=== PATIENT | male | born 1965 | race Caucasian/White ===

== ENCOUNTER 2017-01-16 16:05 | Inpatient (IN) | payer OTHER ==
[~2017-01-16] VITALS: Ht 188 cm; Wt 103.0 kg
[2017-01-16 16:15] VITALS: BP 122/90
[2017-01-16] MEDS ORDERED: MORPHINE SULFATE 2 MG/ML DISP.SYRIN. IV PRN (16:45)
[2017-01-16] MEDS ORDERED: ONDANSETRON PF 4 MG/2 ML VIAL. IV PRN (16:45)
[2017-01-16] MEDS ORDERED: ACETAMINOPHEN 325 MG TABLET. PO PRN (16:45)
[2017-01-16] MEDS ORDERED: AMLO10TA2 PO (17:38)
[2017-01-16] MEDS ORDERED: HYDR12.58 PO (17:38)
[2017-01-16] MEDS ORDERED: ASPI-482 PO (17:39)
[2017-01-16] MEDS ORDERED: ATOR20TA58 PO (17:39)
--- NOTE | 2017-01-16 17:59 | PDOC1 ---
History and Physical Date of Admission Date of Admission 01/16/17 Identification/Chief Complaint Chief Complaint fever Problems: Source Source: Chart review, Patient History of Present Illness History of Present Illness 51yo M, with HTN, hld was transfered from [facility] for fever. Pt serves in the , found a tick on him 1 week ago from [place], 2ds later, having fever daily, 99 to 101. His PCP check [place] dz and flu , were neg as per pt, [facility] fever test pending. Pt also has cough, with yellow sputum for 1 week. + chills, joint pain, no chest pain, N/V, diarrhea or skin rash. on doxy for 5days, still fever, today 101. now he feels bl eye pain when moving eyes, no vision problem. Past Medical History Past Medical History HTN HLD Past Surgical History Past Surgical History: No pertinent history Family History Family History: No Significant Social History Smoke: No ALCOHOL: occassional Drugs: None Current Problem List Problem List Problems Medical Problems: (1) Fever Status: Acute Current Medications Current Medications Current Medications Medications (Trade) Dose Ordered Sig/Anjana Start Time Stop Time Status Last Admin Dose Admin Acetaminophen (Tylenol) 650 mg PRN Q6HRS PRN 01/16/17 16:45 UNV Acetaminophen/ Hydrocodone Bitart (Lortab 5/325) 1 tab PRN Q4HRS PRN 01/16/17 16:45 UNV Doxycycline Hyclate (Vibra-Tab) 100 mg BID 01/16/17 21:00 UNV Enoxaparin Sodium (Lovenox 40mg Syringe) 40 mg Q24H 01/16/17 16:45 UNV Morphine Sulfate 1 mg PRN Q1HR PRN 01/16/17 16:45 UNV Ondansetron HCl (Zofran) 4 mg PRN Q6HRS PRN 01/16/17 16:45 UNV Allergies Allergies Allergies Coded Allergies Type Severity Reaction Last Updated Verified No Known Allergies Allergy Unknown 01/16/17 Yes ROS Review of System CONSTITUTIONAL: No fever or chills EYES: No recent changes SKIN: No rash or itching CARDIOVASCULAR: No chest pain, syncope, palpitations, or edema RESPIRATORY: No SOB or cough GASTROINTESTINAL: No nausea, vomiting or abdominal pain NEUROLOGICAL: No headaches or weakness ENDOCRINE: No cold or heat intolerance GENITOURINARY: No urgency or frequency of urination MUSCULOSKELETAL: No back pain or joint pain LYMPHATICS: No enlarged lymph nodes PSYCHIATRIC: No anxiety or depression Physical Exam Physical Exam GEN.: No apparent distress. Alert and oriented. HEENT: Head is normocephalic, atraumatic NECK: Supple. LUNGS: Clear to auscultation. HEART: RRR, S1, S2 present. Peripheral pulses intact ABDOMEN: Soft, nontender. Positive bowel sounds. EXTREMITIES: Without any cyanosis. NEUROLOGIC: Normal speech, normal tone PSYCHIATRIC: Normal affect, normal mood. SKIN: No ulcerations Vitals Vitals Vital Signs Date Time Temp Pulse Resp B/P Pulse Ox O2 Delivery O2 Flow Rate FiO2 01/16/17 16:15 99.6 68 18 122/90 94 Room Air 99.6 VTE Prophylaxis Ordered VTE Prophylaxis Devices: Yes VTE Pharmacological Prophylaxi: Yes Assessment/Plan Assessment/Plan 1. fever, need to rule out tick transmitted dz 2. HTN 3. hld PLAN: 1. id CONSUlt 2. ucx, bcx 3. cxr 4. MRI brain doxy for now ivf dvt ppx cont home meds, hold hctz check blood smear UYEN GUERRA MD Jan 16, 2017 17:59
[2017-01-16] MEDS ORDERED: GUAIFENESIN/CODEINE 100mg/10mg 5 ML LIQUID. PO PRN (18:00)
[2017-01-16] MEDS: IV NORMAL SALINE 1000ML BAG 1,000 ML IV SCH (18:36)
[2017-01-16 19:08] LABS: BACTERIA,URINE 0 /HPF (0-FEW); BILIRUBIN,URINE NEGATIVE (NEG); GLUCOSE,URINE NEGATIVE (NEG); NITRITE,URINE NEGATIVE (NEG); PH,URINE 6.5; PROTEIN,URINE NEGATIVE (NEG-TRACE); RBC,URINE 0 /HPF (0-2); UROBILINOGEN,URINE 0.2 mg/dL (0.2 mg/dL); WBC,URINE 0 /HPF (0-4)
[2017-01-16 19:18] LABS: BASO % 1 % (0-3); EOS % 0 % (0-3); HEMATOCRIT 40.5 % (39.0-53.0); LYMPH # 0.8 x10^3/uL (1.0-4.8); LYMPH % 38 % (24-48); MEAN CORPUSCULAR HEMOGLOBIN 30 pg (25-35); MEAN CORPUSCULAR HGB CONC 35 g/dL (31-37); MEAN CORPUSCULAR VOLUME 85 fL (79-100); MONO % 9 % (0-9); NEUT % 52 % (31-73); PLATELET COUNT 155 x10^3/uL (140-400); RED BLOOD COUNT 4.74 x10^6/uL (4.30-5.70); RED CELL DISTRIBUTION WIDTH 12.8 % (11.5-14.5)
[2017-01-16 19:24] LABS: PROTHROMBIN TIME PATIENT 12.8 SEC (11.7-14.0)
[2017-01-16 19:38] LABS: CALCIUM 8.6 mg/dL (8.5-10.1); CREATININE 1.3 mg/dL (0.7-1.3); GFR 57.7; POTASSIUM 3.2 mmol/L (3.5-5.1)
[2017-01-16 19:53] VITALS: BP 114/74
[2017-01-16] MEDS: DOXYCYCLINE HYCLATE 100 MG TABLET PO SCH (21:11)
[2017-01-16] MEDS: ENOXAPARIN 40 MG/0.4 ML SYRINGE. SQ SCH (21:12)
[2017-01-16 23:52] VITALS: BP 111/69
[2017-01-17 03:59] VITALS: BP 126/83
[2017-01-17] MEDS: HYDROCODONE/APAP 5/325MG TABLET. PO PRN ×3 (04:14→16:18)
[2017-01-17] MEDS: IV NORMAL SALINE 1000ML BAG 1,000 ML IV SCH (05:19)
[2017-01-17 07:00] VITALS: BP 121/81
[2017-01-17] MEDS: DOXYCYCLINE HYCLATE 100 MG TABLET PO SCH ×2 (08:32→20:42)
[2017-01-17] MEDS: ASPIRIN ENTERIC COATED 81 MG TABLET.DR. PO SCH (08:32)
[2017-01-17] MEDS: ATORVASTATIN CALCIUM 20 MG TABLET PO SCH (08:33)
[2017-01-17] MEDS: AMLODIPINE BESYLATE 10 MG TABLET. PO SCH (08:33)
[2017-01-17] MEDS ORDERED: GADOBUTROL 10 MMOL/10 ML VIAL IV ONE (09:45)
[2017-01-17] MEDS ORDERED: POTASSIUM CHLORIDE 20 MEQ TABLET.ER. PO ONE (10:15)
--- NOTE | 2017-01-17 10:41 | RAD ---
Portable AP upright view CXR: Clinical indications: Fever. Comparison: None available. Findings: No acute lung infiltrate or pleural effusion or pulmonary edema or lung mass or pneumothorax is seen. The heart size, pulmonary vasculature, mediastinum and both krzysztof are unremarkable. Impression: No acute radiographic abnormality is seen.
[2017-01-17 11:03] VITALS: BP 118/20
--- NOTE | 2017-01-17 12:13 | PDOC ---
PROGRESS NOTES Chief Complaint Chief Complaint 1. fever, need to rule out tick born dz 2. HTN 3. hld 4. hypokalemia PLAN: 1. id CONSUlt pending 2. ucx, bcx pending 3. cxr neg 4. MRI brain pending doxy for now dc ivf dvt ppx cont home meds, hold hctz check blood smear replete K History of Present Illness History of Present Illness afebrile still feels bl eyes pain when moving eyes Vitals Vitals Vital Signs Date Time Temp Pulse Resp B/P Pulse Ox O2 Delivery O2 Flow Rate FiO2 01/17/17 11:03 98.6 68 18 118/20 91 Room Air 98.6 Physical Exam General: Alert, Oriented X3, Cooperative Heart: Regular rate, Normal S1, Normal S2 Lungs: Clear Abdomen: Normal bowel sounds, Soft Extremities: No clubbing, No cyanosis Skin: No rashes Labs LABS Laboratory Tests Test 01/16/17 16:38 01/16/17 18:40 Urine Collection Type Unknown Urine Color Yellow Urine Clarity Clear Urine pH 6.5 Urine Specific [place] 1.015 Urine Protein Negativemg/dL (NEG-TRACE) Urine Glucose (UA) Negativemg/dL (NEG) Urine Ketones (Stick) Negativemg/dL (NEG) Urine Blood Negative (NEG) Urine Nitrite Negative (NEG) Urine Bilirubin Negative (NEG) Urine Urobilinogen Dipstick 0.2mg/dL (0.2 mg/dL) Urine Leukocyte Esterase Negative (NEG) Urine RBC 0/HPF (0-2) Urine WBC 0/HPF (0-4) Urine Bacteria 0/HPF (0-FEW) Urine Hyaline Casts Few/HPF Urine Mucus Slight/LPF White Blood Count 2.0x10^3/uL (4.0-11.0) Red Blood Count 4.74x10^6/uL (4.30-5.70) Hemoglobin 14.0g/dL (13.0-17.5) Hematocrit 40.5% (39.0-53.0) Mean Corpuscular Volume 85fL (79-100) Mean Corpuscular Hemoglobin 30pg (25-35) Mean Corpuscular Hemoglobin Concent 35g/dL (31-37) Red Cell Distribution Width 12.8% (11.5-14.5) Platelet Count 155x10^3/uL (140-400) Neutrophils (%) (Auto) 52% (31-73) Lymphocytes (%) (Auto) 38% (24-48) Monocytes (%) (Auto) 9% (0-9) Eosinophils (%) (Auto) 0% (0-3) Basophils (%) (Auto) 1% (0-3) Neutrophils # (Auto) 1.0x10^3uL (1.8-7.7) Lymphocytes # (Auto) 0.8x10^3/uL (1.0-4.8) Monocytes # (Auto) 0.2x10^3/uL (0.0-1.1) Eosinophils # (Auto) 0.0x10^3/uL (0.0-0.7) Basophils # (Auto) 0.0x10^3/uL (0.0-0.2) Prothrombin Time 12.8SEC (11.7-14.0) Prothromb Time International Ratio 1.0 (0.8-1.1) Sodium Level 138mmol/L (136-145) Potassium Level 3.2mmol/L (3.5-5.1) Chloride Level 97mmol/L (98-107) Carbon Dioxide Level 35mmol/L (21-32) Anion Gap 6 (6-14) Blood Urea Nitrogen 18mg/dL (8-26) Creatinine 1.3mg/dL (0.7-1.3) Estimated GFR (Cockcroft-Gault) 57.7 Glucose Level 121mg/dL (70-99) Calcium Level 8.6mg/dL (8.5-10.1) Review of Systems Review of Systems no fever, chills, sob or chest pain Assessment and Plan Assessmemt and Plan Problems Medical Problems: (1) Fever Status: Acute Problems: Comment Review of Relevant I have reviewed the following items frank (where applicable) has been applied. Labs Laboratory Tests Test 01/16/17 16:38 01/16/17 18:40 Urine Collection Type Unknown Urine Color Yellow Urine Clarity Clear Urine pH 6.5 Urine Specific [place] 1.015 Urine Protein Negativemg/dL (NEG-TRACE) Urine Glucose (UA) Negativemg/dL (NEG) Urine Ketones (Stick) Negativemg/dL (NEG) Urine Blood Negative (NEG) Urine Nitrite Negative (NEG) Urine Bilirubin Negative (NEG) Urine Urobilinogen Dipstick 0.2mg/dL (0.2 mg/dL) Urine Leukocyte Esterase Negative (NEG) Urine RBC 0/HPF (0-2) Urine WBC 0/HPF (0-4) Urine Bacteria 0/HPF (0-FEW) Urine Hyaline Casts Few/HPF Urine Mucus Slight/LPF White Blood Count 2.0x10^3/uL (4.0-11.0) Red Blood Count 4.74x10^6/uL (4.30-5.70) Hemoglobin 14.0g/dL (13.0-17.5) Hematocrit 40.5% (39.0-53.0) Mean Corpuscular Volume 85fL (79-100) Mean Corpuscular Hemoglobin 30pg (25-35) Mean Corpuscular Hemoglobin Concent 35g/dL (31-37) Red Cell Distribution Width 12.8% (11.5-14.5) Platelet Count 155x10^3/uL (140-400) Neutrophils (%) (Auto) 52% (31-73) Lymphocytes (%) (Auto) 38% (24-48) Monocytes (%) (Auto) 9% (0-9) Eosinophils (%) (Auto) 0% (0-3) Basophils (%) (Auto) 1% (0-3) Neutrophils # (Auto) 1.0x10^3uL (1.8-7.7) Lymphocytes # (Auto) 0.8x10^3/uL (1.0-4.8) Monocytes # (Auto) 0.2x10^3/uL (0.0-1.1) Eosinophils # (Auto) 0.0x10^3/uL (0.0-0.7) Basophils # (Auto) 0.0x10^3/uL (0.0-0.2) Prothrombin Time 12.8SEC (11.7-14.0) Prothromb Time International Ratio 1.0 (0.8-1.1) Sodium Level 138mmol/L (136-145) Potassium Level 3.2mmol/L (3.5-5.1) Chloride Level 97mmol/L (98-107) Carbon Dioxide Level 35mmol/L (21-32) Anion Gap 6 (6-14) Blood Urea Nitrogen 18mg/dL (8-26) Creatinine 1.3mg/dL (0.7-1.3) Estimated GFR (Cockcroft-Gault) 57.7 Glucose Level 121mg/dL (70-99) Calcium Level 8.6mg/dL (8.5-10.1) Laboratory Tests Test 01/16/17 16:38 01/16/17 18:40 Urine Collection Type Unknown Urine Color Yellow Urine Clarity Clear Urine pH 6.5 Urine Specific [place] 1.015 Urine Protein Negativemg/dL (NEG-TRACE) Urine Glucose (UA) Negativemg/dL (NEG) Urine Ketones (Stick) Negativemg/dL (NEG) Urine Blood Negative (NEG) Urine Nitrite Negative (NEG) Urine Bilirubin Negative (NEG) Urine Urobilinogen Dipstick 0.2mg/dL (0.2 mg/dL) Urine Leukocyte Esterase Negative (NEG) Urine RBC 0/HPF (0-2) Urine WBC 0/HPF (0-4) Urine Bacteria 0/HPF (0-FEW) Urine Hyaline Casts Few/HPF Urine Mucus Slight/LPF White Blood Count 2.0x10^3/uL (4.0-11.0) Red Blood Count 4.74x10^6/uL (4.30-5.70) Hemoglobin 14.0g/dL (13.0-17.5) Hematocrit 40.5% (39.0-53.0) Mean Corpuscular Volume 85fL (79-100) Mean Corpuscular Hemoglobin 30pg (25-35) Mean Corpuscular Hemoglobin Concent 35g/dL (31-37) Red Cell Distribution Width 12.8% (11.5-14.5) Platelet Count 155x10^3/uL (140-400) Neutrophils (%) (Auto) 52% (31-73) Lymphocytes (%) (Auto) 38% (24-48) Monocytes (%) (Auto) 9% (0-9) Eosinophils (%) (Auto) 0% (0-3) Basophils (%) (Auto) 1% (0-3) Neutrophils # (Auto) 1.0x10^3uL (1.8-7.7) Lymphocytes # (Auto) 0.8x10^3/uL (1.0-4.8) Monocytes # (Auto) 0.2x10^3/uL (0.0-1.1) Eosinophils # (Auto) 0.0x10^3/uL (0.0-0.7) Basophils # (Auto) 0.0x10^3/uL (0.0-0.2) Prothrombin Time 12.8SEC (11.7-14.0) Prothromb Time International Ratio 1.0 (0.8-1.1) Sodium Level 138mmol/L (136-145) Potassium Level 3.2mmol/L (3.5-5.1) Chloride Level 97mmol/L (98-107) Carbon Dioxide Level 35mmol/L (21-32) Anion Gap 6 (6-14) Blood Urea Nitrogen 18mg/dL (8-26) Creatinine 1.3mg/dL (0.7-1.3) Estimated GFR (Cockcroft-Gault) 57.7 Glucose Level 121mg/dL (70-99) Calcium Level 8.6mg/dL (8.5-10.1) Medications Current Medications Ondansetron HCl (Zofran) 4 mg PRN Q6HRS PRN IV NAUSEA/VOMITING Last administered on 01/17/17 11:37; Start 01/16/17 at 16:45 Morphine Sulfate 1 mg PRN Q1HR PRN IV PAIN; Start 01/16/17 at 16:45 Acetaminophen/ Hydrocodone Bitart (Lortab 5/325) 1 tab PRN Q4HRS PRN PO MILD PAIN Last administered on 01/17/17 08:32; Start 01/16/17 at 16:45 Acetaminophen (Tylenol) 650 mg PRN Q6HRS PRN PO Headaches, Temp > 101.5F Last administered on 01/16/17 18:37; Start 01/16/17 at 16:45 Enoxaparin Sodium (Lovenox 40mg Syringe) 40 mg Q24H SQ Last administered on 01/16 21:12; Start 01/16/17 at 21:00 Doxycycline Hyclate (Vibra-Tab) 100 mg BID PO Last administered on 01/17/17 08: 32; Start 01/16/17 at 21:00 Amlodipine Besylate (Norvasc) 10 mg DAILY PO Last administered on 01/17/17 08: 33; Start 01/17/17 at 09:00 Aspirin (Ecotrin) 81 mg DAILY PO Last administered on 01/17/17 08:32; Start 01/17/17 at 09:00 Atorvastatin Calcium 20 mg 20 mg DAILY PO Last administered on 01/17/17 08:33; Start 01/17/17 at 09:00 Sodium Chloride (Iv Sodium Chloride 0.9% 1000ml Bag) 1,000 ml @ 75 mls/hr [id number] IV Last administered on 01/17/17 05:19; Start 01/16/17 at 18:00 Guaifenesin/ Codeine Phosphate (Robitussin Ac) 5 ml PRN Q6HRS PRN PO COUGH; Start 01/16/17 at 18:00 Gadobutrol (Gadavist) 10 mmol 1X ONCE IV Last administered on 01/17/17 10:05; Start 01/17/17 at 09:45; Stop 01/17/17 at 09:46; Status DC Potassium Chloride (Klor-Con) 40 meq 1X ONCE PO Last administered on 01/17/17 12:03; Start 01/17/17 at 10:15; Stop 01/17/17 at 10:16; Status DC Active Scripts Active Reported Aspir 81 (Aspirin) 81 Mg Tablet.dr 1 Tab PO DAILY Atorvastatin Calcium 20 Mg Tablet 1 Tab PO DAILY Hydrochlorothiazide Tablet (Hydrochlorothiazide) 12.5 Mg Tablet 2 Tab PO DAILY Amlodipine Besylate 10 Mg Tablet 10 Mg PO DAILY Vitals/I & O Vital Sign - Last 24 Hours 01/16/17 01/16/17 01/16/17 01/16/17 16:15 19:53 20:00 23:52 Temp 99.6 98.9 99.0 99.6 98.9 99.0 Pulse 68 79 62 Resp 18 18 18 B/P 122/90 114/74 111/69 Pulse Ox 94 93 97 O2 Delivery Room Air Room Air Room Air Room Air 01/17/17 01/17/17 01/17/17 01/17/17 03:59 04:14 05:19 07:00 Temp 99.3 98.4 99.3 98.4 Pulse 69 60 Resp 18 20 18 18 B/P 126/83 121/81 Pulse Ox 93 93 O2 Delivery Room Air Room Air Room Air Room Air 01/17/17 01/17/17 08:33 11:03 Temp 98.6 98.6 Pulse 60 68 Resp 18 B/P 121/81 118/20 Pulse Ox 91 O2 Delivery Room Air Intake and Output 01/16/17 01/16/17 01/17/17 15:00 23:00 07:00 Intake Total 500 ml 1200 ml Output Total 300 ml Balance 500 ml 900 ml YUEN GUERRA MD Jan 17, 2017 12:13
--- NOTE | 2017-01-17 13:20 | RAD ---
MRI study of the brain with and without contrast Indications: Bilateral eye pain with movement side to side. Low-grade fever for one week. Patient got bit by a tick. Technique: Pre and postcontrast enhanced MRI sequences of the brain were performed. A total of 10 mL of Gadavist was given intravenously. Findings: No restricted diffusion is seen. No intracranial hemorrhage or mass effect or midline shift or hydrocephalus is seen. Mild bilateral periventricular white matter hyperintensities are seen consistent with chronic small vessel ischemic disease in this age group. No intracranial contrast enhancing lesion is seen. No leptomeningeal enhancement is seen. Normal vascular flow signal voids are seen. Internal auditory canals are symmetric without abnormal enhancement. There is mild mucosal thickening of the left maxillary sinus and both ethmoid sinuses and the left sphenoid sinus. No opacification of the paranasal sinuses is seen otherwise and no air-fluid levels are seen. No opacification of the mastoid sinuses is seen. The orbits are symmetric without abnormal enhancement. No cerebellar tonsillar ectopia or pituitary mass is seen. IMPRESSION: Mild chronic small vessel ischemic disease of the periventricular white matter. Otherwise no significant intracranial abnormality is evident. The orbits are symmetric.
--- NOTE | 2017-01-17 14:00 | PDOC ---
Infectious Disease Note Vital Sign Vital Signs Vital Signs Date Time Temp Pulse Resp B/P Pulse Ox O2 Delivery O2 Flow Rate FiO2 01/17/17 11:03 98.6 68 18 118/20 91 Room Air 98.6 Labs Lab Laboratory Tests Test 01/16/17 16:38 01/16/17 18:40 Urine Collection Type Unknown Urine Color Yellow Urine Clarity Clear Urine pH 6.5 Urine Specific [place] 1.015 Urine Protein Negativemg/dL (NEG-TRACE) Urine Glucose (UA) Negativemg/dL (NEG) Urine Ketones (Stick) Negativemg/dL (NEG) Urine Blood Negative (NEG) Urine Nitrite Negative (NEG) Urine Bilirubin Negative (NEG) Urine Urobilinogen Dipstick 0.2mg/dL (0.2 mg/dL) Urine Leukocyte Esterase Negative (NEG) Urine RBC 0/HPF (0-2) Urine WBC 0/HPF (0-4) Urine Bacteria 0/HPF (0-FEW) Urine Hyaline Casts Few/HPF Urine Mucus Slight/LPF White Blood Count 2.0x10^3/uL (4.0-11.0) Red Blood Count 4.74x10^6/uL (4.30-5.70) Hemoglobin 14.0g/dL (13.0-17.5) Hematocrit 40.5% (39.0-53.0) Mean Corpuscular Volume 85fL (79-100) Mean Corpuscular Hemoglobin 30pg (25-35) Mean Corpuscular Hemoglobin Concent 35g/dL (31-37) Red Cell Distribution Width 12.8% (11.5-14.5) Platelet Count 155x10^3/uL (140-400) Neutrophils (%) (Auto) 52% (31-73) Lymphocytes (%) (Auto) 38% (24-48) Monocytes (%) (Auto) 9% (0-9) Eosinophils (%) (Auto) 0% (0-3) Basophils (%) (Auto) 1% (0-3) Neutrophils # (Auto) 1.0x10^3uL (1.8-7.7) Lymphocytes # (Auto) 0.8x10^3/uL (1.0-4.8) Monocytes # (Auto) 0.2x10^3/uL (0.0-1.1) Eosinophils # (Auto) 0.0x10^3/uL (0.0-0.7) Basophils # (Auto) 0.0x10^3/uL (0.0-0.2) Prothrombin Time 12.8SEC (11.7-14.0) Prothromb Time International Ratio 1.0 (0.8-1.1) Sodium Level 138mmol/L (136-145) Potassium Level 3.2mmol/L (3.5-5.1) Chloride Level 97mmol/L (98-107) Carbon Dioxide Level 35mmol/L (21-32) Anion Gap 6 (6-14) Blood Urea Nitrogen 18mg/dL (8-26) Creatinine 1.3mg/dL (0.7-1.3) Estimated GFR (Cockcroft-Gault) 57.7 Glucose Level 121mg/dL (70-99) Calcium Level 8.6mg/dL (8.5-10.1) Objective Assessment Fever, better Leukopenia Headache./Eye pain -MRI, mild chronic small vessel ischemic disease -s/p LP: CSF WBC O, glu59, T pro 42.2. CT neg ([facility]) Tick bite HTN Plan Plan of Care Continue Doxy and add Unasyn CBC and LFTs in am Monitor response Thank you Attending Co-Sign The patient was seen and interviewed as well as examined at the bedside. The chart was reviewed. The case was discussed. Agree with the plan of care. ALEKSANDR PATRICK APRN Jan 17, 2017 14:00 OSKAR CABRAL MD Jan 17, 2017 15:15
[2017-01-17 14:54] VITALS: BP 120/78
[2017-01-17] MEDS ORDERED: AMPICILLIN/SULBACTAM 3 GM in IV NORMAL SALINE 100ML 100 ML IV SCH (15:00)
[2017-01-17] MEDS: AMPICILLIN/SULBACTAM 3 GM in IV NORMAL SALINE 100ML 100 ML IV SCH ×2 (16:17→20:42)
[2017-01-17] MEDS ORDERED: METOCLOPRAMIDE HCL 10 MG/2 ML VIAL. IV PRN (17:30)
[2017-01-17 18:55] VITALS: BP 122/74
[2017-01-17] MEDS: ENOXAPARIN 40 MG/0.4 ML SYRINGE. SQ SCH (20:42)
[2017-01-17 22:49] VITALS: BP 116/71
--- NOTE | 2017-01-18 01:51 | CONS ---
DATE OF CONSULTATION: 01/16/2017 Yaron Hall, nurse practitioner, dictating for Dr. Onel Cabral, Infectious Disease. REFERRING PHYSICIAN: Dr. Minor. REASON FOR CONSULTATION: Fever. HISTORY OF PRESENT ILLNESS: The patient is a 51-year-old male who recently traveled to [place] 12/18/2016 through 12/22/2016 with his family. He stays in their cabin, which is located about [place] of [place]. He enjoyed his time hiking and fishing. No hunting game exposure or swimming. The following day after returning home, he did not feel well. His energy was low. He was not very hungry. He felt lethargic. He returned to work but had a hard time of concentrating. He felt very fatigued. He took a few days off with no relief. About a week after returning home from [place], he noticed a soft tick crawling around his abdomen. He killed it. Denies rash, redness or swelling. Two days later, he developed fevers, chills and muscle aches in both shoulders. He took Tylenol for relief. He continued not to feel well. He developed headache mostly around his eyes with sinus congestion off and on and a mild cough with phlegm production. He was seen by his primary care provider at [facility] where he was prescribed doxycycline. He had lab work done which is not available. He had been taking the doxycycline for about 5 days when he presented to [facility] with persistent symptoms. While in the ER, he had a temperature of 100.1. He was leukopenic with a white blood cell count of 2.46 with 42% bands, 17% lymphocytes, 26% monocytes, 12% atypical lymphocytes and 1% metamyelocytes. LFTs were within normal range. CRP was 1.6. Creatinine is 1.3 with a potassium of 2.9. His CT of the head showed no evidence of acute abnormalities. Chest x-ray was unremarkable. He underwent a lumbar puncture. CSF was clear and colorless. WBC 0, glucose 59 and total protein 41.2. Blood cultures were ordered. He has since been transferred to [facility]. ID has been asked to consult for further evaluation and management. The patient continues not to feel well. He is most bothered by pain with movement of his eyes horizontally. He had MRI of the brain earlier this morning and afterwards developed acute onset of nausea and vomiting. He has not had a fever within the last 24 hours. He has been in the for over 35 years and has traveled including to [place] in the past. No change in diet. His family is well. No recent antibiotics aside from the doxycycline. The patient reports fevers wax and wane. PAST MEDICAL HISTORY: Hypertension and hyperlipidemia. PAST SURGICAL HISTORY: Excision of subcutaneous mass of left shoulder. Left forearm and left elbow fractures, status post repair. SOCIAL HISTORY: The patient is . He is currently serving in [employer], going on 35 years. Nonsmoker. FAMILY HISTORY: His father had heart disease. His mother had lymphatic type cancer. His maternal grandfather had myocardial infarction. ALLERGIES: No known drug allergies. MEDICATIONS: Doxycycline. Other medications are available and have been reviewed on the DEC. REVIEW OF SYSTEMS: As per HPI, otherwise all other review of systems are negative. PHYSICAL EXAMINATION: GENERAL: male lying in bed in no apparent distress. VITAL SIGNS: Temperature 98.6, blood pressure ____, heart rate 68, respiratory rate 18, pulse oximetry is 91% on room air. HEENT: Pupils equally round and reactive. Extraocular movements intact. Negative sinus tenderness. Oropharynx and cavity pink. No lesions seen. NECK: Supple. No rigidity or adenopathy present. LUNGS: Clear to auscultation. HEART: Normal S1, S2. No murmur appreciated. ABDOMEN: Obese, bowel sounds are present, soft, nontender. EXTREMITIES: No gross edema or cyanosis. SKIN: Without rash. Warm to touch. NEUROLOGIC: Alert and oriented x 3. Moves all extremities. No focal deficits noted. LABORATORY DATA: Recent WBC 2.0, hemoglobin 14.0, platelet count 155,000. Sodium 138, potassium 3.2, creatinine 1.3, BUN 18, glucose 121. Urinalysis unremarkable for infection. IMAGING STUDIES: Chest x-ray unremarkable. MRI of the brain with and without contrast showed mild chronic small vessel ischemic disease of the periventricular white matter. Otherwise, no significant intracranial abnormality is evident. Blood cultures pending. IMPRESSION: 1. Fever. 2. Leukopenia. 3. Headache and eye pain. 4. Tick bite. 5. Hypertension. PLAN: Continue with doxycycline and add Unasyn. Repeat the labs including LFTs in the morning. Monitor response. Workup. Thank you Dr. Minor, for asking us to participate in this patient's care. Should you have further questions or concerns, please call. The patient is seen and examined and plan of care implemented by Dr. Onel Cabral. ONEL CABRAL MD DR: YOLIE/kim JOB#: [id number] / [id number] ROHIT
[2017-01-18] MEDS: HYDROCODONE/APAP 5/325MG TABLET. PO PRN (03:40)
[2017-01-18 04:58] LABS: BASO % 1 % (0-3); EOS % 1 % (0-3); HEMATOCRIT 39.3 % (39.0-53.0); HEMOGLOBIN 13.5 g/dL (13.0-17.5); LYMPH # 1.1 x10^3/uL (1.0-4.8); LYMPH % 46 % (24-48); MEAN CORPUSCULAR HEMOGLOBIN 29 pg (25-35); MEAN CORPUSCULAR HGB CONC 34 g/dL (31-37); MEAN CORPUSCULAR VOLUME 86 fL (79-100); MONO % 15 % (0-9); NEUT % 37 % (31-73); PLATELET COUNT 129 x10^3/uL (140-400); RED BLOOD COUNT 4.58 x10^6/uL (4.30-5.70); RED CELL DISTRIBUTION WIDTH 12.6 % (11.5-14.5); WHITE BLOOD COUNT 2.4 x10^3/uL (4.0-11.0)
[2017-01-18 05:11] LABS: CALCIUM 8.2 mg/dL (8.5-10.1); CREATININE 1.2 mg/dL (0.7-1.3); GFR 63.3; POTASSIUM 3.4 mmol/L (3.5-5.1)
[2017-01-18 05:17] LABS: ALBUMIN 3.1 g/dL (3.4-5.0); DIRECT BILIRUBIN 0.2 mg/dL (0.0-0.2); TOTAL BILIRUBIN 0.4 mg/dL (0.2-1.0); TOTAL PROTEIN 6.7 g/dL (6.4-8.2)
[2017-01-18] MEDS: AMPICILLIN/SULBACTAM 3 GM in IV NORMAL SALINE 100ML 100 ML IV SCH ×3 (05:54→17:32)
[2017-01-18 07:00] VITALS: BP 119/84
[2017-01-18] MEDS: ASPIRIN ENTERIC COATED 81 MG TABLET.DR. PO SCH (09:29)
[2017-01-18] MEDS: DOXYCYCLINE HYCLATE 100 MG TABLET PO SCH ×2 (09:29→22:27)
[2017-01-18] MEDS: ATORVASTATIN CALCIUM 20 MG TABLET PO SCH (09:29)
[2017-01-18] MEDS: AMLODIPINE BESYLATE 10 MG TABLET. PO SCH (09:30)
--- NOTE | 2017-01-18 10:03 | PDOC ---
Infectious Disease Note Subjective Subjective feeling better, eye pain improved, did have fever to 100.4 ROS ROS GEN: Denies fevers, chills, sweats HEENT: Denies blurred vision, sore throat CV: Denies chest pain RESP: Denies shortness of air, cough GI: Denies n/v/d NEURO: Denies confusion, dizziness MSK: Denies weakness, joint pain/swelling Vital Sign Vital Signs Vital Signs Date Time Temp Pulse Resp B/P Pulse Ox O2 Delivery O2 Flow Rate FiO2 01/18/17 09:30 61 119/84 01/18/17 07:00 97.9 18 93 Room Air 97.9 Physical Exam PHYSICAL EXAM GENERAL: NAD, Alert HEENT: PERRL, OC/OP NECK: Supple, no JVD, no LN LUNGS: Clear HEART: S1S2, no gallop, no murmur ABD: Soft, NT, no organomegaly, no rebound EXT: No edema, no cyanosis INVESTIGATOR CASH SHORTAGE: Alert, oriented x 3, no focal neurologic deficit SKIN: No rash IV: ok Labs Lab Laboratory Tests Test 01/18/17 04:00 White Blood Count 2.4x10^3/uL (4.0-11.0) Red Blood Count 4.58x10^6/uL (4.30-5.70) Hemoglobin 13.5g/dL (13.0-17.5) Hematocrit 39.3% (39.0-53.0) Mean Corpuscular Volume 86fL (79-100) Mean Corpuscular Hemoglobin 29pg (25-35) Mean Corpuscular Hemoglobin Concent 34g/dL (31-37) Red Cell Distribution Width 12.6% (11.5-14.5) Platelet Count 129x10^3/uL (140-400) Neutrophils (%) (Auto) 37% (31-73) Lymphocytes (%) (Auto) 46% (24-48) Monocytes (%) (Auto) 15% (0-9) Eosinophils (%) (Auto) 1% (0-3) Basophils (%) (Auto) 1% (0-3) Neutrophils # (Auto) 0.9x10^3uL (1.8-7.7) Lymphocytes # (Auto) 1.1x10^3/uL (1.0-4.8) Monocytes # (Auto) 0.4x10^3/uL (0.0-1.1) Eosinophils # (Auto) 0.0x10^3/uL (0.0-0.7) Basophils # (Auto) 0.0x10^3/uL (0.0-0.2) Sodium Level 138mmol/L (136-145) Potassium Level 3.4mmol/L (3.5-5.1) Chloride Level 99mmol/L (98-107) Carbon Dioxide Level 33mmol/L (21-32) Anion Gap 6 (6-14) Blood Urea Nitrogen 11mg/dL (8-26) Creatinine 1.2mg/dL (0.7-1.3) Estimated GFR (Cockcroft-Gault) 63.3 Glucose Level 101mg/dL (70-99) Calcium Level 8.2mg/dL (8.5-10.1) Total Bilirubin 0.4mg/dL (0.2-1.0) Direct Bilirubin 0.2mg/dL (0.0-0.2) Aspartate Amino Transf (AST/SGOT) 28U/L (15-37) Alanine Aminotransferase (ALT/SGPT) 22U/L (16-63) Alkaline Phosphatase 66U/L (46-116) Total Protein 6.7g/dL (6.4-8.2) Albumin 3.1g/dL (3.4-5.0) Objective Assessment Fever, better Leukopenia Headache./Eye pain -MRI, mild chronic small vessel ischemic disease -s/p LP: CSF WBC O, glu59, T pro 42.2. CT neg ([facility]) Tick bite HTN Plan Plan of Care Continue Doxy and Unasyn CBC and LF likely has [place] tick fever, (viral infection) RMSF IgG +, Ig M neg, that is old infection d/w OSKAR CABRAL MD Jan 18, 2017 10:03
[2017-01-18 10:56] VITALS: BP 125/84
--- NOTE | 2017-01-18 11:43 | PDOC ---
PROGRESS NOTES Chief Complaint Chief Complaint 1. fever, need to rule out tick born dz 2. HTN 3. hld 4. hypokalemia PLAN: 1. id CONSUlt pending 2. ucx, bcx pending 3. cxr neg 4. MRI brain pending doxy for now dc ivf dvt ppx cont home meds, hold hctz check blood smear replete K History of Present Illness History of Present Illness afebrile still feels bl eyes pain when moving eyes Vitals Vitals Vital Signs Date Time Temp Pulse Resp B/P Pulse Ox O2 Delivery O2 Flow Rate FiO2 01/18/17 10:56 98.3 60 18 125/84 95 Room Air 98.3 Physical Exam General: Alert, Oriented X3, Cooperative Heart: Regular rate, Normal S1, Normal S2 Lungs: Clear Abdomen: Normal bowel sounds, Soft Extremities: No clubbing, No cyanosis Skin: No rashes Labs LABS Laboratory Tests Test 01/18/17 04:00 White Blood Count 2.4x10^3/uL (4.0-11.0) Red Blood Count 4.58x10^6/uL (4.30-5.70) Hemoglobin 13.5g/dL (13.0-17.5) Hematocrit 39.3% (39.0-53.0) Mean Corpuscular Volume 86fL (79-100) Mean Corpuscular Hemoglobin 29pg (25-35) Mean Corpuscular Hemoglobin Concent 34g/dL (31-37) Red Cell Distribution Width 12.6% (11.5-14.5) Platelet Count 129x10^3/uL (140-400) Neutrophils (%) (Auto) 37% (31-73) Lymphocytes (%) (Auto) 46% (24-48) Monocytes (%) (Auto) 15% (0-9) Eosinophils (%) (Auto) 1% (0-3) Basophils (%) (Auto) 1% (0-3) Neutrophils # (Auto) 0.9x10^3uL (1.8-7.7) Lymphocytes # (Auto) 1.1x10^3/uL (1.0-4.8) Monocytes # (Auto) 0.4x10^3/uL (0.0-1.1) Eosinophils # (Auto) 0.0x10^3/uL (0.0-0.7) Basophils # (Auto) 0.0x10^3/uL (0.0-0.2) Sodium Level 138mmol/L (136-145) Potassium Level 3.4mmol/L (3.5-5.1) Chloride Level 99mmol/L (98-107) Carbon Dioxide Level 33mmol/L (21-32) Anion Gap 6 (6-14) Blood Urea Nitrogen 11mg/dL (8-26) Creatinine 1.2mg/dL (0.7-1.3) Estimated GFR (Cockcroft-Gault) 63.3 Glucose Level 101mg/dL (70-99) Calcium Level 8.2mg/dL (8.5-10.1) Total Bilirubin 0.4mg/dL (0.2-1.0) Direct Bilirubin 0.2mg/dL (0.0-0.2) Aspartate Amino Transf (AST/SGOT) 28U/L (15-37) Alanine Aminotransferase (ALT/SGPT) 22U/L (16-63) Alkaline Phosphatase 66U/L (46-116) Total Protein 6.7g/dL (6.4-8.2) Albumin 3.1g/dL (3.4-5.0) Assessment and Plan Assessmemt and Plan Problems Medical Problems: (1) Fever Status: Acute Problems: Comment Review of Relevant I have reviewed the following items frank (where applicable) has been applied. Labs Laboratory Tests Test 01/16/17 16:38 01/16/17 18:40 01/18/17 04:00 Urine Collection Type Unknown Urine Color Yellow Urine Clarity Clear Urine pH 6.5 Urine Specific [place] 1.015 Urine Protein Negativemg/dL (NEG-TRACE) Urine Glucose (UA) Negativemg/dL (NEG) Urine Ketones (Stick) Negativemg/dL (NEG) Urine Blood Negative (NEG) Urine Nitrite Negative (NEG) Urine Bilirubin Negative (NEG) Urine Urobilinogen Dipstick 0.2mg/dL (0.2 mg/dL) Urine Leukocyte Esterase Negative (NEG) Urine RBC 0/HPF (0-2) Urine WBC 0/HPF (0-4) Urine Bacteria 0/HPF (0-FEW) Urine Hyaline Casts Few/HPF Urine Mucus Slight/LPF White Blood Count 2.0x10^3/uL (4.0-11.0) 2.4x10^3/uL (4.0-11.0) Red Blood Count 4.74x10^6/uL (4.30-5.70) 4.58x10^6/uL (4.30-5.70) Hemoglobin 14.0g/dL (13.0-17.5) 13.5g/dL (13.0-17.5) Hematocrit 40.5% (39.0-53.0) 39.3% (39.0-53.0) Mean Corpuscular Volume 85fL (79-100) 86fL (79-100) Mean Corpuscular Hemoglobin 30pg (25-35) 29pg (25-35) Mean Corpuscular Hemoglobin Concent 35g/dL (31-37) 34g/dL (31-37) Red Cell Distribution Width 12.8% (11.5-14.5) 12.6% (11.5-14.5) Platelet Count 155x10^3/uL (140-400) 129x10^3/uL (140-400) Neutrophils (%) (Auto) 52% (31-73) 37% (31-73) Lymphocytes (%) (Auto) 38% (24-48) 46% (24-48) Monocytes (%) (Auto) 9% (0-9) 15% (0-9) Eosinophils (%) (Auto) 0% (0-3) 1% (0-3) Basophils (%) (Auto) 1% (0-3) 1% (0-3) Neutrophils # (Auto) 1.0x10^3uL (1.8-7.7) 0.9x10^3uL (1.8-7.7) Lymphocytes # (Auto) 0.8x10^3/uL (1.0-4.8) 1.1x10^3/uL (1.0-4.8) Monocytes # (Auto) 0.2x10^3/uL (0.0-1.1) 0.4x10^3/uL (0.0-1.1) Eosinophils # (Auto) 0.0x10^3/uL (0.0-0.7) 0.0x10^3/uL (0.0-0.7) Basophils # (Auto) 0.0x10^3/uL (0.0-0.2) 0.0x10^3/uL (0.0-0.2) Prothrombin Time 12.8SEC (11.7-14.0) Prothromb Time International Ratio 1.0 (0.8-1.1) Sodium Level 138mmol/L (136-145) 138mmol/L (136-145) Potassium Level 3.2mmol/L (3.5-5.1) 3.4mmol/L (3.5-5.1) Chloride Level 97mmol/L (98-107) 99mmol/L (98-107) Carbon Dioxide Level 35mmol/L (21-32) 33mmol/L (21-32) Anion Gap 6 (6-14) 6 (6-14) Blood Urea Nitrogen 18mg/dL (8-26) 11mg/dL (8-26) Creatinine 1.3mg/dL (0.7-1.3) 1.2mg/dL (0.7-1.3) Estimated GFR (Cockcroft-Gault) 57.7 63.3 Glucose Level 121mg/dL (70-99) 101mg/dL (70-99) Calcium Level 8.6mg/dL (8.5-10.1) 8.2mg/dL (8.5-10.1) Total Bilirubin 0.4mg/dL (0.2-1.0) Direct Bilirubin 0.2mg/dL (0.0-0.2) Aspartate Amino Transf (AST/SGOT) 28U/L (15-37) Alanine Aminotransferase (ALT/SGPT) 22U/L (16-63) Alkaline Phosphatase 66U/L (46-116) Total Protein 6.7g/dL (6.4-8.2) Albumin 3.1g/dL (3.4-5.0) Laboratory Tests Test 01/18/17 04:00 White Blood Count 2.4x10^3/uL (4.0-11.0) Red Blood Count 4.58x10^6/uL (4.30-5.70) Hemoglobin 13.5g/dL (13.0-17.5) Hematocrit 39.3% (39.0-53.0) Mean Corpuscular Volume 86fL (79-100) Mean Corpuscular Hemoglobin 29pg (25-35) Mean Corpuscular Hemoglobin Concent 34g/dL (31-37) Red Cell Distribution Width 12.6% (11.5-14.5) Platelet Count 129x10^3/uL (140-400) Neutrophils (%) (Auto) 37% (31-73) Lymphocytes (%) (Auto) 46% (24-48) Monocytes (%) (Auto) 15% (0-9) Eosinophils (%) (Auto) 1% (0-3) Basophils (%) (Auto) 1% (0-3) Neutrophils # (Auto) 0.9x10^3uL (1.8-7.7) Lymphocytes # (Auto) 1.1x10^3/uL (1.0-4.8) Monocytes # (Auto) 0.4x10^3/uL (0.0-1.1) Eosinophils # (Auto) 0.0x10^3/uL (0.0-0.7) Basophils # (Auto) 0.0x10^3/uL (0.0-0.2) Sodium Level 138mmol/L (136-145) Potassium Level 3.4mmol/L (3.5-5.1) Chloride Level 99mmol/L (98-107) Carbon Dioxide Level 33mmol/L (21-32) Anion Gap 6 (6-14) Blood Urea Nitrogen 11mg/dL (8-26) Creatinine 1.2mg/dL (0.7-1.3) Estimated GFR (Cockcroft-Gault) 63.3 Glucose Level 101mg/dL (70-99) Calcium Level 8.2mg/dL (8.5-10.1) Total Bilirubin 0.4mg/dL (0.2-1.0) Direct Bilirubin 0.2mg/dL (0.0-0.2) Aspartate Amino Transf (AST/SGOT) 28U/L (15-37) Alanine Aminotransferase (ALT/SGPT) 22U/L (16-63) Alkaline Phosphatase 66U/L (46-116) Total Protein 6.7g/dL (6.4-8.2) Albumin 3.1g/dL (3.4-5.0) Microbiology 01/16/17 Blood Culture - Preliminary, Resulted NO GROWTH AFTER 1 DAY Medications Current Medications Ondansetron HCl (Zofran) 4 mg PRN Q6HRS PRN IV NAUSEA/VOMITING Last administered on 01/17/17 11:37; Start 01/16/17 at 16:45 Morphine Sulfate 1 mg PRN Q1HR PRN IV PAIN; Start 01/16/17 at 16:45 Acetaminophen/ Hydrocodone Bitart (Lortab 5/325) 1 tab PRN Q4HRS PRN PO MILD PAIN Last administered on 01/18/17 03:40; Start 01/16/17 at 16:45 Acetaminophen (Tylenol) 650 mg PRN Q6HRS PRN PO Headaches, Temp > 101.5F Last administered on 01/16/17 18:37; Start 01/16/17 at 16:45 Enoxaparin Sodium (Lovenox 40mg Syringe) 40 mg Q24H SQ Last administered on 01/17 20:42; Start 01/16/17 at 21:00 Doxycycline Hyclate (Vibra-Tab) 100 mg BID PO Last administered on 01/18/17 09 :29; Start 01/16/17 at 21:00 Amlodipine Besylate (Norvasc) 10 mg DAILY PO Last administered on 01/18/17 09: 30; Start 01/17/17 at 09:00 Aspirin (Ecotrin) 81 mg DAILY PO Last administered on 01/18/17 09:29; Start at 09:00 Atorvastatin Calcium 20 mg 20 mg DAILY PO Last administered on 01/18/17 09:29 ; Start 01/17/17 at 09:00 Sodium Chloride (Iv Sodium Chloride 0.9% 1000ml Bag) 1,000 ml @ 75 mls/hr [id number] IV Last administered on 01/17/17 05:19; Start 01/16/17 at 18:00; Stop at 12:12; Status DC Guaifenesin/ Codeine Phosphate (Robitussin Ac) 5 ml PRN Q6HRS PRN PO COUGH; Start 01/16/17 at 18:00 Gadobutrol (Gadavist) 10 mmol 1X ONCE IV Last administered on 01/17/17 10:05; Start 01/17/17 at 09:45; Stop 01/17/17 at 09:46; Status DC Potassium Chloride 40 meq 40 meq 1X ONCE PO Last administered on 01/17/17 12: 03; Start 01/17/17 at 10:15; Stop 01/17/17 at 10:16; Status DC Ampicillin Sodium/ Sulbactam Sodium 3 gm/Sodium Chloride 100 ml @ 200 mls/hr Q6HRS IV ; Start 01/17/17 at 15:00; Status Cancel Ampicillin Sodium/ Sulbactam Sodium/ Sodium Chloride (Unasyn/Iv Sodium Chloride 0.9% 100ml) 100 ml @ 200 mls/hr Q6HRS IV Last administered on 01/18/17 11:40 ; Start 01/17/17 at 17:00 Metoclopramide HCl (Reglan) 10 mg PRN Q6HRS PRN IV NAUSEA/VOMITING; Start at 17:30 Active Scripts Active Reported Aspir 81 (Aspirin) 81 Mg Tablet.dr 1 Tab PO DAILY Atorvastatin Calcium 20 Mg Tablet 1 Tab PO DAILY Hydrochlorothiazide Tablet (Hydrochlorothiazide) 12.5 Mg Tablet 2 Tab PO DAILY Amlodipine Besylate 10 Mg Tablet 10 Mg PO DAILY Vitals/I & O Vital Sign - Last 24 Hours 01/17/17 01/17/17 01/17/17 01/17/17 14:54 18:55 19:37 22:49 Temp 98.6 98.9 99.0 98.6 98.9 99.0 Pulse 69 70 63 Resp 18 18 B/P 120/78 122/74 116/71 Pulse Ox 92 92 91 O2 Delivery Room Air Room Air Room Air Room Air 01/18/17 01/18/17 01/18/17 01/18/17 03:39 03:40 04:48 04:49 Temp 100.4 98.8 100.4 98.8 Resp 18 20 O2 Delivery Room Air Room Air 01/18/17 01/18/17 01/18/17 07:00 09:30 10:56 Temp 97.9 98.3 97.9 98.3 Pulse 61 61 60 Resp 18 18 B/P 119/84 119/84 125/84 Pulse Ox 93 95 O2 Delivery Room Air Room Air Intake and Output 01/17/17 01/17/17 01/18/17 15:00 23:00 07:00 Intake Total 500 ml 900 ml 500 ml Output Total 900 ml Balance -400 ml 900 ml 500 ml GEORGIE EWING MD Jan 18, 2017 11:43
[2017-01-18] MEDS ORDERED: POTASSIUM CHLORIDE 20 MEQ TABLET.ER. PO ONE (11:45)
[2017-01-18 14:06] VITALS: BP 116/84
[2017-01-18 19:54] VITALS: BP 120/83
[2017-01-18] MEDS: ENOXAPARIN 40 MG/0.4 ML SYRINGE. SQ SCH (20:17)
--- NOTE | 2017-01-18 22:07 | PDOC ---
PROGRESS NOTES Chief Complaint Chief Complaint 1. Suspected Viral infection, possible CTF 2. HTN 3. HLP 4. hypokalemia PLAN: 1. On Doxycycline and Unasyn 2. Fever this AM, BCX no growth 3. Symptomatic treatment 4. Replace electrolytes 5. Monitor CBC/CMP. History of Present Illness History of Present Illness mild eye pain fever no chills. Vitals Vitals Vital Signs Date Time Temp Pulse Resp B/P Pulse Ox O2 Delivery O2 Flow Rate FiO2 01/18/17 19:54 98.1 64 16 120/83 93 Room Air 98.1 Physical Exam General: Alert, Oriented X3, Cooperative Heart: Regular rate, Normal S1, Normal S2 Lungs: Clear Abdomen: Normal bowel sounds, Soft Extremities: No clubbing, No cyanosis Skin: No rashes Labs LABS Laboratory Tests Test 01/18/17 04:00 White Blood Count 2.4x10^3/uL (4.0-11.0) Red Blood Count 4.58x10^6/uL (4.30-5.70) Hemoglobin 13.5g/dL (13.0-17.5) Hematocrit 39.3% (39.0-53.0) Mean Corpuscular Volume 86fL (79-100) Mean Corpuscular Hemoglobin 29pg (25-35) Mean Corpuscular Hemoglobin Concent 34g/dL (31-37) Red Cell Distribution Width 12.6% (11.5-14.5) Platelet Count 129x10^3/uL (140-400) Neutrophils (%) (Auto) 37% (31-73) Lymphocytes (%) (Auto) 46% (24-48) Monocytes (%) (Auto) 15% (0-9) Eosinophils (%) (Auto) 1% (0-3) Basophils (%) (Auto) 1% (0-3) Neutrophils # (Auto) 0.9x10^3uL (1.8-7.7) Lymphocytes # (Auto) 1.1x10^3/uL (1.0-4.8) Monocytes # (Auto) 0.4x10^3/uL (0.0-1.1) Eosinophils # (Auto) 0.0x10^3/uL (0.0-0.7) Basophils # (Auto) 0.0x10^3/uL (0.0-0.2) Sodium Level 138mmol/L (136-145) Potassium Level 3.4mmol/L (3.5-5.1) Chloride Level 99mmol/L (98-107) Carbon Dioxide Level 33mmol/L (21-32) Anion Gap 6 (6-14) Blood Urea Nitrogen 11mg/dL (8-26) Creatinine 1.2mg/dL (0.7-1.3) Estimated GFR (Cockcroft-Gault) 63.3 Glucose Level 101mg/dL (70-99) Calcium Level 8.2mg/dL (8.5-10.1) Total Bilirubin 0.4mg/dL (0.2-1.0) Direct Bilirubin 0.2mg/dL (0.0-0.2) Aspartate Amino Transf (AST/SGOT) 28U/L (15-37) Alanine Aminotransferase (ALT/SGPT) 22U/L (16-63) Alkaline Phosphatase 66U/L (46-116) Total Protein 6.7g/dL (6.4-8.2) Albumin 3.1g/dL (3.4-5.0) Assessment and Plan Assessmemt and Plan Problems Medical Problems: (1) Fever Status: Acute Problems: Comment Review of Relevant I have reviewed the following items frank (where applicable) has been applied. Labs Laboratory Tests Test 01/18/17 04:00 White Blood Count 2.4x10^3/uL (4.0-11.0) Red Blood Count 4.58x10^6/uL (4.30-5.70) Hemoglobin 13.5g/dL (13.0-17.5) Hematocrit 39.3% (39.0-53.0) Mean Corpuscular Volume 86fL (79-100) Mean Corpuscular Hemoglobin 29pg (25-35) Mean Corpuscular Hemoglobin Concent 34g/dL (31-37) Red Cell Distribution Width 12.6% (11.5-14.5) Platelet Count 129x10^3/uL (140-400) Neutrophils (%) (Auto) 37% (31-73) Lymphocytes (%) (Auto) 46% (24-48) Monocytes (%) (Auto) 15% (0-9) Eosinophils (%) (Auto) 1% (0-3) Basophils (%) (Auto) 1% (0-3) Neutrophils # (Auto) 0.9x10^3uL (1.8-7.7) Lymphocytes # (Auto) 1.1x10^3/uL (1.0-4.8) Monocytes # (Auto) 0.4x10^3/uL (0.0-1.1) Eosinophils # (Auto) 0.0x10^3/uL (0.0-0.7) Basophils # (Auto) 0.0x10^3/uL (0.0-0.2) Sodium Level 138mmol/L (136-145) Potassium Level 3.4mmol/L (3.5-5.1) Chloride Level 99mmol/L (98-107) Carbon Dioxide Level 33mmol/L (21-32) Anion Gap 6 (6-14) Blood Urea Nitrogen 11mg/dL (8-26) Creatinine 1.2mg/dL (0.7-1.3) Estimated GFR (Cockcroft-Gault) 63.3 Glucose Level 101mg/dL (70-99) Calcium Level 8.2mg/dL (8.5-10.1) Total Bilirubin 0.4mg/dL (0.2-1.0) Direct Bilirubin 0.2mg/dL (0.0-0.2) Aspartate Amino Transf (AST/SGOT) 28U/L (15-37) Alanine Aminotransferase (ALT/SGPT) 22U/L (16-63) Alkaline Phosphatase 66U/L (46-116) Total Protein 6.7g/dL (6.4-8.2) Albumin 3.1g/dL (3.4-5.0) Laboratory Tests Test 01/18/17 04:00 White Blood Count 2.4x10^3/uL (4.0-11.0) Red Blood Count 4.58x10^6/uL (4.30-5.70) Hemoglobin 13.5g/dL (13.0-17.5) Hematocrit 39.3% (39.0-53.0) Mean Corpuscular Volume 86fL (79-100) Mean Corpuscular Hemoglobin 29pg (25-35) Mean Corpuscular Hemoglobin Concent 34g/dL (31-37) Red Cell Distribution Width 12.6% (11.5-14.5) Platelet Count 129x10^3/uL (140-400) Neutrophils (%) (Auto) 37% (31-73) Lymphocytes (%) (Auto) 46% (24-48) Monocytes (%) (Auto) 15% (0-9) Eosinophils (%) (Auto) 1% (0-3) Basophils (%) (Auto) 1% (0-3) Neutrophils # (Auto) 0.9x10^3uL (1.8-7.7) Lymphocytes # (Auto) 1.1x10^3/uL (1.0-4.8) Monocytes # (Auto) 0.4x10^3/uL (0.0-1.1) Eosinophils # (Auto) 0.0x10^3/uL (0.0-0.7) Basophils # (Auto) 0.0x10^3/uL (0.0-0.2) Sodium Level 138mmol/L (136-145) Potassium Level 3.4mmol/L (3.5-5.1) Chloride Level 99mmol/L (98-107) Carbon Dioxide Level 33mmol/L (21-32) Anion Gap 6 (6-14) Blood Urea Nitrogen 11mg/dL (8-26) Creatinine 1.2mg/dL (0.7-1.3) Estimated GFR (Cockcroft-Gault) 63.3 Glucose Level 101mg/dL (70-99) Calcium Level 8.2mg/dL (8.5-10.1) Total Bilirubin 0.4mg/dL (0.2-1.0) Direct Bilirubin 0.2mg/dL (0.0-0.2) Aspartate Amino Transf (AST/SGOT) 28U/L (15-37) Alanine Aminotransferase (ALT/SGPT) 22U/L (16-63) Alkaline Phosphatase 66U/L (46-116) Total Protein 6.7g/dL (6.4-8.2) Albumin 3.1g/dL (3.4-5.0) Microbiology 01/16/17 Blood Culture - Preliminary, Resulted NO GROWTH AFTER 2 DAYS Medications Current Medications Ondansetron HCl (Zofran) 4 mg PRN Q6HRS PRN IV NAUSEA/VOMITING (1ST CHOICE) Last administered on 01/17/17 11:37; Start 01/16/17 at 16:45 Morphine Sulfate 1 mg PRN Q1HR PRN IV PAIN; Start 01/16/17 at 16:45 Acetaminophen/ Hydrocodone Bitart (Lortab 5/325) 1 tab PRN Q4HRS PRN PO MILD PAIN Last administered on 01/18/17 03:40; Start 01/16/17 at 16:45 Acetaminophen (Tylenol) 650 mg PRN Q6HRS PRN PO Headaches, Temp > 101.5F Last administered on 01/16/17 18:37; Start 01/16/17 at 16:45 Enoxaparin Sodium (Lovenox 40mg Syringe) 40 mg Q24H SQ Last administered on 20:17; Start 01/16/17 at 21:00 Doxycycline Hyclate (Vibra-Tab) 100 mg BID PO Last administered on 01/18/17 09 :29; Start 01/16/17 at 21:00 Amlodipine Besylate (Norvasc) 10 mg DAILY PO Last administered on 01/18/17 09: 30; Start 01/17/17 at 09:00 Aspirin (Ecotrin) 81 mg DAILY PO Last administered on 01/18/17 09:29; Start at 09:00 Atorvastatin Calcium 20 mg 20 mg DAILY PO Last administered on 01/18/17 09:29 ; Start 01/17/17 at 09:00 Sodium Chloride (Iv Sodium Chloride 0.9% 1000ml Bag) 1,000 ml @ 75 mls/hr [id number] IV Last administered on 01/17/17 05:19; Start 01/16/17 at 18:00; Stop at 12:12; Status DC Guaifenesin/ Codeine Phosphate (Robitussin Ac) 5 ml PRN Q6HRS PRN PO COUGH; Start 01/16/17 at 18:00 Gadobutrol (Gadavist) 10 mmol 1X ONCE IV Last administered on 01/17/17 10:05; Start 01/17/17 at 09:45; Stop 01/17/17 at 09:46; Status DC Potassium Chloride 40 meq 40 meq 1X ONCE PO Last administered on 01/17/17 12: 03; Start 01/17/17 at 10:15; Stop 01/17/17 at 10:16; Status DC Ampicillin Sodium/ Sulbactam Sodium 3 gm/Sodium Chloride 100 ml @ 200 mls/hr Q6HRS IV ; Start 01/17/17 at 15:00; Status Cancel Ampicillin Sodium/ Sulbactam Sodium/ Sodium Chloride (Unasyn/Iv Sodium Chloride 0.9% 100ml) 100 ml @ 200 mls/hr Q6HRS IV Last administered on 01/18/17 17:32 ; Start 01/17/17 at 17:00 Metoclopramide HCl (Reglan) 10 mg PRN Q6HRS PRN IV NAUSEA/VOMITING (2ND CHOICE) ; Start 01/17/17 at 17:30 Potassium Chloride (Klor-Con) 20 meq 1X ONCE PO Last administered on 12:24; Start 01/18/17 at 11:45; Stop 01/18/17 at 11:47; Status DC Active Scripts Active Reported Aspir 81 (Aspirin) 81 Mg Tablet.dr 1 Tab PO DAILY Atorvastatin Calcium 20 Mg Tablet 1 Tab PO DAILY Hydrochlorothiazide Tablet (Hydrochlorothiazide) 12.5 Mg Tablet 2 Tab PO DAILY Amlodipine Besylate 10 Mg Tablet 10 Mg PO DAILY Vitals/I & O Vital Sign - Last 24 Hours 01/17/17 01/18/17 01/18/17 01/18/17 22:49 03:39 03:40 04:48 Temp 99.0 100.4 99.0 100.4 Pulse 63 Resp 18 18 20 B/P 116/71 Pulse Ox 91 O2 Delivery Room Air Room Air Room Air 01/18/17 01/18/17 01/18/17 01/18/17 04:49 07:00 09:30 10:56 Temp 98.8 97.9 98.3 98.8 97.9 98.3 Pulse 61 61 60 Resp 18 18 B/P 119/84 119/84 125/84 Pulse Ox 93 95 O2 Delivery Room Air Room Air 01/18/17 01/18/17 14:06 19:54 Temp 98.1 98.1 98.1 98.1 Pulse 65 64 Resp 18 16 B/P 116/84 120/83 Pulse Ox 94 93 O2 Delivery Room Air Room Air Intake and Output 01/17/17 01/17/1701/18/17 15:00 23:00 07:00 Intake Total 500 ml 900 ml 500 ml Output Total 900 ml Balance -400 ml 900 ml 500 ml GEORGIE EWING MD Jan 18, 2017 22:07
[2017-01-18 23:23] VITALS: BP 105/74
[2017-01-19] MEDS: AMPICILLIN/SULBACTAM 3 GM in IV NORMAL SALINE 100ML 100 ML IV SCH ×2 (00:32→05:51)
[2017-01-19 03:22] VITALS: BP 109/78
[2017-01-19 07:00] VITALS: BP 135/89
[2017-01-19] MEDS: ATORVASTATIN CALCIUM 20 MG TABLET PO SCH (08:22)
[2017-01-19] MEDS: ASPIRIN ENTERIC COATED 81 MG TABLET.DR. PO SCH (08:22)
[2017-01-19] MEDS: DOXYCYCLINE HYCLATE 100 MG TABLET PO SCH (08:25)
[2017-01-19] MEDS: AMLODIPINE BESYLATE 10 MG TABLET. PO SCH (08:25)
[2017-01-19 09:36] LABS: CALCIUM 8.2 mg/dL (8.5-10.1); CREATININE 1.2 mg/dL (0.7-1.3); GFR 63.3; POTASSIUM 3.5 mmol/L (3.5-5.1)
[2017-01-19 09:43] LABS: BASO % 1 % (0-3); EOS % 3 % (0-3); LYMPH # 1.8 x10^3/uL (1.0-4.8); LYMPH % 53 % (24-48); MEAN CORPUSCULAR HEMOGLOBIN 29 pg (25-35); MEAN CORPUSCULAR HGB CONC 34 g/dL (31-37); MEAN CORPUSCULAR VOLUME 85 fL (79-100); MONO % 18 % (0-9); NEUT % 26 % (31-73); PLATELET COUNT 150 x10^3/uL (140-400); RED BLOOD COUNT 4.83 x10^6/uL (4.30-5.70); RED CELL DISTRIBUTION WIDTH 12.9 % (11.5-14.5); WHITE BLOOD COUNT 3.4 x10^3/uL (4.0-11.0)
--- NOTE | 2017-01-19 09:59 | PDOC ---
Infectious Disease Note Subjective Subjective feeling better, eye pain improved, no fever ROS ROS GEN: Denies fevers, chills, sweats HEENT: Denies blurred vision, sore throat CV: Denies chest pain RESP: Denies shortness of air, cough GI: Denies n/v/d NEURO: Denies confusion, dizziness MSK: Denies weakness, joint pain/swelling Vital Sign Vital Signs Vital Signs Date Time Temp Pulse Resp B/P Pulse Ox O2 Delivery O2 Flow Rate FiO2 01/19/17 08:25 58 135/89 01/19/17 08:00 Room Air 01/19/17 07:00 98.5 20 98 98.5 Physical Exam PHYSICAL EXAM GENERAL: NAD, Alert HEENT: PERRL, OC/OP NECK: Supple, no JVD, no LN LUNGS: Clear HEART: S1S2, no gallop, no murmur ABD: Soft, NT, no organomegaly, no rebound EXT: No edema, no cyanosis [employer]: Alert, oriented x 3, no focal neurologic deficit SKIN: No rash IV: ok Labs Lab Laboratory Tests Test 01/19/17 09:00 White Blood Count 3.4x10^3/uL (4.0-11.0) Red Blood Count 4.83x10^6/uL (4.30-5.70) Hemoglobin 14.0g/dL (13.0-17.5) Hematocrit 41.0% (39.0-53.0) Mean Corpuscular Volume 85fL (79-100) Mean Corpuscular Hemoglobin 29pg (25-35) Mean Corpuscular Hemoglobin Concent 34g/dL (31-37) Red Cell Distribution Width 12.9% (11.5-14.5) Platelet Count 150x10^3/uL (140-400) Neutrophils (%) (Auto) 26% (31-73) Lymphocytes (%) (Auto) 53% (24-48) Monocytes (%) (Auto) 18% (0-9) Eosinophils (%) (Auto) 3% (0-3) Basophils (%) (Auto) 1% (0-3) Neutrophils # (Auto) 0.9x10^3uL (1.8-7.7) Lymphocytes # (Auto) 1.8x10^3/uL (1.0-4.8) Monocytes # (Auto) 0.6x10^3/uL (0.0-1.1) Eosinophils # (Auto) 0.1x10^3/uL (0.0-0.7) Basophils # (Auto) 0.0x10^3/uL (0.0-0.2) Sodium Level 140mmol/L (136-145) Potassium Level 3.5mmol/L (3.5-5.1) Chloride Level 102mmol/L (98-107) Carbon Dioxide Level 32mmol/L (21-32) Anion Gap 6 (6-14) Blood Urea Nitrogen 15mg/dL (8-26) Creatinine 1.2mg/dL (0.7-1.3) Estimated GFR (Cockcroft-Gault) 63.3 Glucose Level 121mg/dL (70-99) Calcium Level 8.2mg/dL (8.5-10.1) Objective Assessment Fever, better Leukopenia Headache./Eye pain -MRI, mild chronic small vessel ischemic disease -s/p LP: CSF WBC O, glu59, T pro 42.2. CT neg ([facility]) Tick bite HTN Plan Plan of Care d/c Doxy and Unasyn CBC and LF likely has [place] tick fever, (viral infection) or many other viral infection like [place] virus or [place] virus RMSF IgG +, Ig M neg, that is old infection d/w f/u with me if needed SOKAR CABRAL MD Jan 19, 2017 09:59
[2017-01-19 10:16] LABS: % EOS 2 % (0-5); PLT ESTIMATE ADEQUATE (ADEQUATE)
[2017-01-19 11:00] VITALS: BP 122/83
== END 2017-01-19 11:25 | disposition home or self-care (01) | DRG 866 ==
LOC: 5 SOUTH 16:05
PROVIDERS: ADMIT Internal Medicine; ATTEND Internal Medicine
DX: A93.2 Colorado tick fever (principal); I10 Essential (primary) hypertension; E87.6 Hypokalemia; E78.5 Hyperlipidemia, unspecified; D72.819 Decreased white blood cell count, unspecified; R11.2 Nausea with vomiting, unspecified; Z82.49 Family history of ischemic heart disease and other diseases of the circulatory system
CPT/HCPCS: 36415; 70553; 71010; 80048; 80076; 81001; 85007; 85027; 85610; 87040; A9585; J0295; J1650; J2405; J7030